=== PATIENT | male | born 1945 | race Hispanic/Latino ===

== ENCOUNTER → 2025-01-08 | Outpatient (CLI) | payer OTHER, MEDICARE ==
--- NOTE | 2025-01-09 06:28 | HMCIMG ---
EXAM: CR Entire Spine, 3 views. CLINICAL HISTORY: Scoliosis evaluation. COMPARISON: None provided. FINDINGS: There is about 18 degrees of dextroscoliosis of the thoracolumbar spine and 16 degrees of levoscoliosis of the lumbosacral spine. Mild osteopenia. Moderate spondylosis and degenerative disc space narrowing at multiple levels. Normal vertebral body heights. No acute fracture. The soft tissues are within normal limits. The included lungs are clear. 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 Partially visualized left hip joint replacement implant. Partially visualized implant around the perineal area. IMPRESSION: There is about 18 degrees of dextroscoliosis of the thoracolumbar spine and 16 degrees of levoscoliosis of the lumbosacral spine. Mild osteopenia. Moderate spondylosis and degenerative disc space narrowing at multiple levels. /[place]
== END | disposition home or self-care (01) ==
LOC: RAH 13:28
PROVIDERS: ATTEND Physical Medicine & Rehabilitation
DX: C18.7 Malignant neoplasm of sigmoid colon (principal); M47.815 Spondylosis without myelopathy or radiculopathy, thoracolumbar region; M21.70 Unequal limb length (acquired), unspecified site; M41.85 Other forms of scoliosis, thoracolumbar region; M41.87 Other forms of scoliosis, lumbosacral region; Z96.649 Presence of unspecified artificial hip joint; M85.88 Other specified disorders of bone density and structure, other site
CPT/HCPCS: 72081